=== PATIENT | male | born 1995 | race African-American/Black ===

== ENCOUNTER 2022-08-31 19:27 | Outpatient (CLI) | payer BC, SELFPAY ==
--- NOTE | 2022-09-19 11:41 | W.PM.SLEEP ---
Sleep Study Details Details Interpreting Provider: Sekou Trevino MD Date of Sleep Study: 08/31/22 Sleep Study Details: STUDY TYPE:? Home ? BMI:? 35.7 ORDERING PROVIDER:? Belinda INDICATION:? Concerns about sleep apnea ? SLEEP SUMMARY:? 395.5 minutes monitored RESPIRATORY SUMMARY:? AHI 42.2, supine 48.4, right lateral 24.6 Low oxygen 78 5.6% of study oxygen less than 90%, 0.9% of study oxygen less than 85% snoring% 9.3 PERIODIC LIMB MOVEMENTS OF SLEEP:? Not recorded CARDIAC:? 49-109, mean 63.3 IMPRESSION:? Severe obstructive sleep apnea with supine position dependency RECOMMENDATION: Auto set CPAP pressure 4-17
== END 2022-08-31 19:28 | disposition home or self-care (01) ==
LOC: SLEEP 19:29
PROVIDERS: PCP Family Medicine; Visit Provider Otolaryngology
DX: G47.33 Obstructive sleep apnea (adult) (pediatric) (principal)
CPT/HCPCS: 95806

== ENCOUNTER 2022-10-08 22:37 | Emergency (ER) | payer BC, SELFPAY ==
[2022-10-08 23:11] VITALS: BP 136/79; PULSE 63; RESP 14; TEMP 36.6; O2SAT 100; BMI 35.0
--- NOTE | 2022-10-09 00:05 | ED.WOUNDLAC ---
HPI - Wound/Laceration General Time Seen by Provider: 00:05 Date Seen: 10/09/22 Chief Complaint: Laceration/Wound Stated Complaint: Left Hand Laceration Time Seen by Provider: 10/09/22 00:05 Source: patient and RN notes reviewed Mode of arrival: ambulatory Limitations: no limitations History of Present Illness HPI narrative: Patient is a 26-year-old male coming into the ER with an accidental wound in between his thumb and finger in the interdigital web space of his left hand. He was cutting fish with a knife and accidentally cut himself in this area. He thinks his tetanus may be up-to-date but it is unclear. We will attempt to look that up. No numbness tingling, nothing else was injured. Is still able to freely move fingers/hand. This happened just prior to arrival. Extremity Location: Left: hand Context: accidental Related Data Home Medications Medication Instructions Recorded Confirmed famotidine 40 mg tablet 40 mg PO 07/30/22 09/13/22 pantoprazole 40 mg tablet,delayed tab PO 07/30/22 09/13/22 release Previous Rx's Medication Instructions Recorded amoxicillin 875 mg-potassium 1 tab PO Q12H #20 tabs 07/30/22 clavulanate 125 mg tablet nicotine 14 mg/24 hr daily 1 patch transdermal Q24H #28 ea 07/30/22 transdermal patch prednisone 20 mg tablet 40 mg PO QDAY #10 tabs 07/30/22 nicotine (polacrilex) 2 mg buccal 2 mg buccal Q8H PRN nicotine 08/08/22 lozenge (Nicorette) cravings #72 ea Allergies Allergy/AdvReac Type Severity Reaction Status Date / Time No Known Drug Allergies Allergy Verified 09/13/22 11:23 Review of Systems Narrative: As per HPI PFSH PFSH Social History Smoking Status: Current every day smoker Do you use any of these nicotine containing products: None Second hand tobacco smoke exposure: No How often do you have a drink containing alcohol: never AUDIT-C Alcohol total score: 0 Non-prescribed substance use: denies use Exam Const: Vital Signs, click to edit/add: Vital Signs - 24 hr 10/08/22 23:11 Temperature 97.9 F Pulse Rate [Left P ulse Oximeter] 63 Respiratory Rate 14 Blood Pressure [Ri ght Upper Arm] 136/79 Pulse Oximetry 100 Oxygen Delivery Me thod Room Air Documenting provider has reviewed patient's vital signs: yes Common normals: no apparent distress, average body habitus, oriented x3, no limitations, healthy appearing and alert Other: Patient has a bout a 1 cm laceration situated obliquely in the interdigital web space just below the left thumb. It is just into the subcutaneous tissue but gapes easily. There is dried blood around it, no active bleeding. He has full mobility of his digits, neurovascular is intact. Neuro: Common normals: oriented x3 Sensorium/orientation: alert Course Course Hospital Course: Reviewed with patient that I recommended placing a few stitches to reapproximate the skin edges. Without this I think this wound will continue to open and will have prolonged healing. He agrees to having the stitches done. Reevaluation(s) Reevaluation #1: Nursing staff has been able to secure last tetanus date of 06/15/2020, thus up-to-date. Time: 00:30 Vital Signs Vital signs: Initial Vital Signs Temperature 97.9 F 10/08/22 23:11 Temperature Source Temporal Artery Scan 10/08/22 23:11 Pulse Rate 63 10/08/22 23:11 Pulse Rhythm 10/08/22 23:11 Respiratory Rate 14 10/08/22 23:11 Blood Pressure 136/79 10/08/22 23:11 Blood Pressure Mean 98 10/08/22 23:11 Blood Pressure Position Sitting 10/08/22 23:11 Pulse Oximetry 100 10/08/22 23:11 Oxygen Delivery Method 10/08/22 23:11 Vital Signs Temperature 97.9 F 10/08/22 23:11 Pulse Rate 63 10/08/22 23:11 Respiratory Rate 14 10/08/22 23:11 Blood Pressure 136/79 10/08/22 23:11 Pulse Oximetry 100 10/08/22 23:11 Oxygen Delivery Method 10/08/22 23:11 Temperature 97.9 F 10/08/22 23:11 Pulse Rate 63 10/08/22 23:11 Respiratory Rate 14 10/08/22 23:11 Blood Pressure 136/79 10/08/22 23:11 Pulse Oximetry 100 10/08/22 23:11 Oxygen Delivery Method 10/08/22 23:11 Critical Care Time Critical Care Time Critical Care Time: No Discharge Plan Discharge Clinical Impression: Laceration of hand, left Condition: Stable Instructions: Care For Your Stitches (ED), Laceration (ED) Additional Instructions: Need to keep this wound clean and dry outside of bathing or washing your hand. Keep a bandage with bacitracin on the wound when you are up and about or in public. Need to schedule a clinic follow-up in 1 weeks time to assess the wound for suture removal. If there is any concerns for infection, please seek re-evaluation. Review handouts provided. Activity Level: Activity as Tolerated Discharge Diet: Regular Prescriptions: No Action pantoprazole 40 mg tablet,delayed release (DR/EC) PO famotidine 40 mg tablet 40 mg PO amoxicillin-pot clavulanate 875-125 mg tablet 1 tab PO Q12H Qty: 20 0RF prednisone 20 mg tablet 40 mg PO QDAY Qty: 10 0RF nicotine 14 mg/24 hr patch 24 hour 1 patch transdermal Q24H Qty: 28 1RF nicotine (polacrilex) [Nicorette] 2 mg lozenge 2 mg buccal Q8H PRN (Reason: nicotine cravings) Qty: 72 0RF Follow Up/Referrals: Abdelrahman House MD [Primary Care Provider] - Stand Alone Forms: [facility] Info Instructions Procedures Laceration Laceration 1: Pre procedure diagnosis: Left hand laceration Post procedure diagnosis: Same Site marking: not applicable Verification/time out: correct patient, correct site and correct procedure Name of person performing procedure: Lelia Gomez Site: hand Side (If applicable): left Size (cm): 1 Description: linear and clean Depth: simple, single layer Local Anesthetic: lidocaine 1% Amount of anesthesia used (mL): 3 Pre-repair: wound explored and irrigated extensively Skin layer closed with: other (Ethilon) Size (cm): 4-0 Number of sutures: 3 Technique: simple, interrupted Wound cleansing: sterile water Estimated blood loss (if any): none Conclusion: patient tolerated procedure
[2022-10-09] MEDS: LIDOCAINE 1 % PF 30 ML INJECTION (01:35)
== END 2022-10-09 00:55 | disposition home or self-care (01) ==
LOC: ED 10-09 00:41
PROVIDERS: Emergency Provider Family Medicine; PCP Family Medicine
DX: S61.412A Laceration without foreign body of left hand, initial encounter (principal); W26.0XXA Contact with knife, initial encounter; Y93.G9 Activity, other involving cooking and grilling; Y92.9 Unspecified place or not applicable; Y99.8 Other external cause status
CPT/HCPCS: 12001; 99281; 99283; J2001

== ENCOUNTER 2023-05-25 16:26 | Outpatient (CLI) | payer BC, SELFPAY | END 2023-05-25 16:27 | disposition home or self-care (01) | PROVIDERS: PCP Family Medicine; Visit Provider Family Medicine | DX: Z00.00 Encounter for general adult medical examination without abnormal findings (principal); Z13.6 Encounter for screening for cardiovascular disorders | CPT/HCPCS: 80048; 80061; 86592; 86703; 87491; 87591 ==

== ENCOUNTER 2023-06-04 09:38 | Emergency (ER) | payer BC, SELFPAY ==
[2023-06-04 09:43] VITALS: BP 130/69; PULSE 66; RESP 16; TEMP 36.1; O2SAT 96; BMI 31.9
--- NOTE | 2023-06-04 10:01 | ED.GENADULT ---
HPI - General Adult General Chief complaint: Sore Throat Stated complaint: swollen throat Time Seen by Provider: 06/04/23 09:51 Source: patient Mode of arrival: ambulatory Limitations: no limitations History of Present Illness HPI narrative: 27-year-old male presenting with a sore throat for a couple of days. Throat is getting worse. He felt chills last night. Is painful to swallow. He has no difficulty talking or breathing. Denies cough or other systemic symptoms. Denies any sick contacts. Related Data Home Medications Medication Instructions Recorded Confirmed famotidine 40 mg tablet 40 mg PO DAILY 07/30/22 06/04/23 pantoprazole 40 mg tablet,delayed 40 mg PO DAILY 07/30/22 06/04/23 release trazodone 50 mg tablet 50 mg PO QPM 05/25/23 06/04/23 Previous Rx's Medication Instructions Recorded amoxicillin 875 mg-potassium 1 tab PO BID 7 days #14 tabs 06/04/23 clavulanate 125 mg tablet Allergies Allergy/AdvReac Type Severity Reaction Status Date / Time No Known Drug Allergies Allergy Verified 06/04/23 09:49 Review of Systems Status of ROS: Reports: 10 or more systems reviewed and unremarkable except as noted in History and below [facility] Medical History History of alcohol abuse ?F10.11 - Alcohol abuse, in remission (ICD-10) Insomnia ?G47.00 - Insomnia, unspecified (ICD-10) GERD (gastroesophageal reflux disease) ?K21.9 - Gastro-esophageal reflux disease without esophagitis (ICD-10) Elevated blood pressure reading ?R03.0 - Elevated blood-pressure reading, without diagnosis of hypertension (ICD-10) ADD (attention deficit disorder) ?F98.8 - Other specified behavioral and emotional disorders with onset usually occurring in childhood and adolescence (ICD-10) Depression ?F32.A - Depression, unspecified (ICD-10) ALLYSSA (obstructive sleep apnea) ?G47.33 - Obstructive sleep apnea (adult) (pediatric) (ICD-10) Social History What is 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 living situation?: I presently have a place to live Problems where you live: pests, such as bugs, ants, or mice In the past 12 months, utilities in danger of being shut off: no In the past 12 mos, have been you worried that your food would run out before you had money to buy more?: never true In the past 12 mos, the food you bought just didn't last and you didn't have money to buy more?: never true Smoking Status: Current every day smoker What tobacco products do you use: cigarettes Do you use any of these nicotine containing products: None Second hand tobacco smoke exposure: No How often do you have a drink containing alcohol: never AUDIT-C Alcohol total score: 0 Non-prescribed substance use: denies use How often does anyone, including family, friends and others, physically hurt you: never How often does anyone, including family, friends and others, insult or talk down to you: never How often does anyone, including family, friends and others, threaten you with harm: never How often does anyone, including family, friends and others, scream or curse at you: rarely Little interest or pleasure in doing things: not at all Feeling down, depressed, or hopeless: not at all Exam Narrative: Exam Narrative: Well-nourished well-developed patient in no acute distress. Alert and oriented. Answers questions appropriately. Mood and affect are appropriate. Thoughts are goal oriented and rational. No tangential or magical thinking noted. Patient speaks in full sentences without needing to catch their breath. Speech is not slurred or pressured. Voice is not congested. HEENT: Normocephalic atraumatic. Pupils are equally round reactive to light. Extraocular muscles are intact. Conjunctivae are moist without any icterus noted. Moist mucous membranes. Posterior pharynx shows bilateral tonsillar swelling and exudate present. The soft palate appears irritated but does not appear infected. The soft palate is not protruding forward. Neck is soft without any lymphadenopathy or thyromegaly. No masses are appreciated. Cardiovascular: Heart is regular rate and rhythm. Lungs: Clear to auscultation bilaterally . Skin: Well perfused without any obvious rashes. Const: Vital Signs, click to edit/add: Vital Signs - 24 hr 06/04/23 09:43 Temperature 96.9 F L Pulse Rate [Left P ulse Oximeter] 66 Respiratory Rate 16 Blood Pressure [Le ft Upper Arm] 130/69 Pulse Oximetry 96 Oxygen Delivery Me thod Room Air Course Course Hospital Course: Rapid strep was done which was negative. However given the appearance of his posterior pharynx. We will go ahead and treat with Augmentin. Vital Signs Vital signs: Initial Vital Signs Temperature 96.9 F L 06/04/23 09:43 Temperature Source Temporal Artery Scan 06/04/23 09:43 Pulse Rate 66 06/04/23 09:43 Respiratory Rate 16 06/04/23 09:43 Blood Pressure 130/69 06/04/23 09:43 Blood Pressure Mean 89 06/04/23 09:43 Blood Pressure Position Sitting 06/04/23 09:43 Pulse Oximetry 96 06/04/23 09:43 Oxygen Delivery Method Room Air 06/04/23 09:43 Vital Signs Temperature 96.9 F L 06/04/23 09:43 Pulse Rate 66 06/04/23 09:43 Respiratory Rate 16 06/04/23 09:43 Blood Pressure 130/69 06/04/23 09:43 Pulse Oximetry 96 06/04/23 09:43 Oxygen Delivery Method Room Air 06/04/23 09:43 Temperature 96.9 F L 06/04/23 09:43 Pulse Rate 66 06/04/23 09:43 Respiratory Rate 16 06/04/23 09:43 Blood Pressure 130/69 06/04/23 09:43 Pulse Oximetry 96 06/04/23 09:43 Oxygen Delivery Method Room Air 06/04/23 09:43 Medical Decision Making MDM Narrative Medical decision making narrative: 27-year-old male with pharyngitis. Will treat with Augmentin for 7 days. Lab Data Lab results reviewed: Yes I reviewed the patient's lab results Labs: Lab Results 06/04/23 Range/Units 10:05 Group A Strep DNA NOT DETECTED (Not Detectd) Discharge Plan Discharge Clinical Impression: Pharyngitis Patient Disposition: Home, Self-Care Condition: Stable Additional Instructions: Your strep test was negative today. But it does appear that you have an infection of the throat. Take all antibiotics as prescribed. Okay to use ibuprofen Tylenol as needed for discomfort. Return to the ER if symptoms are getting worse after 48 hours instead of better. Prescriptions: New amoxicillin-pot clavulanate 875-125 mg tablet 1 tab PO BID 7 Days Qty: 14 0RF No Action pantoprazole 40 mg tablet,delayed release (DR/EC) 40 mg PO DAILY famotidine 40 mg tablet 40 mg PO DAILY trazodone 50 mg tablet 50 mg PO QPM Follow Up/Referrals: Conrad Cast MD [Primary Care Provider] - Stand Alone Forms: [employer] Info Instructions
[2023-06-04 11:12] LABS: Strep A DNA Probe* NOT DETECTED (Not Detectd)
[2023-06-04 11:23] VITALS: PULSE 62; PULSE 97; TEMP 36.4
== END 2023-06-04 11:23 | disposition home or self-care (01) ==
PROVIDERS: Emergency Provider Family Medicine; PCP Family Medicine
DX: J02.9 Acute pharyngitis, unspecified (principal)
CPT/HCPCS: 87651; 99283; 99284

== ENCOUNTER 2023-06-14 16:23 | Emergency (ER) | payer BC, SELFPAY ==
[2023-06-14 16:29] VITALS: BP 129/72; PULSE 77; RESP 16; TEMP 36.4; O2SAT 96; BMI 31.9
[2023-06-14 17:31] VITALS: BP 128/75; PULSE 74; RESP 16; O2SAT 96
--- NOTE | 2023-06-14 17:48 | ED.GENADULT ---
HPI - General Adult General Chief complaint: Sore Throat Stated complaint: sore throat still Time Seen by Provider: 06/14/23 17:43 History of Present Illness HPI narrative: This 27-year-old male was seen about 10 days ago in the emergency department here because of a sore throat. At that time his strep test was negative but given the appearance of his throat he did receive a prescription for Augmentin. He states that he got some relief for a few days but then has had persistent sore throat since then. He states that he does smoke. He is interested in cutting back and is concerned about the effect of smoking on his throat and lungs. He does not report any fevers. He does have an occasional cough. He does not report any shortness of breath. Related Data Home Medications Medication Instructions Recorded Confirmed famotidine 40 mg tablet 40 mg PO DAILY 07/30/22 06/04/23 pantoprazole 40 mg tablet,delayed 40 mg PO DAILY 07/30/22 06/04/23 release trazodone 50 mg tablet 50 mg PO QPM 05/25/23 06/04/23 Previous Rx's Medication Instructions Recorded amoxicillin 875 mg-potassium 1 tab PO BID 7 days #14 tabs 06/04/23 clavulanate 125 mg tablet Allergies Allergy/AdvReac Type Severity Reaction Status Date / Time No Known Drug Allergies Allergy Verified 06/14/23 16:34 Review of Systems Status of ROS: Reports: 10 or more systems reviewed and unremarkable except as noted in History and below Narrative: Constitutional: No fevers, no weight gain or loss. Eyes: No discharge. No vision changes. HENT: No congestion, no ear pain. Sore throat as described above. Cardiovascular: No chest pain, no palpitations. Respiratory: No shortness of breath, no wheezes. Occasional cough. Gastrointestinal: No abdominal pain, no vomiting, no diarrhea. Genitourinary: No dysuria, no hematuria. Musculoskeletal: Normal range of motion. Skin: No rashes, no pruritis. Neurological: No dizziness, weakness, sensory change, speech change. Endo/Heme/Allergies: No bruising or bleeding. No polydipsia. Pysch: no suicidality, no anxiety, no insomnia. All other systems reviewed and are negative. [facility] Medical History (Updated 06/14/23 @ 17:52 by Nilesh Villalobos MD) Major depression, recurrent ?F33.9 - Major depressive disorder, recurrent, unspecified (ICD-10) History of alcohol abuse ?F10.11 - Alcohol abuse, in remission (ICD-10) Insomnia ?G47.00 - Insomnia, unspecified (ICD-10) GERD (gastroesophageal reflux disease) ?K21.9 - Gastro-esophageal reflux disease without esophagitis (ICD-10) ADD (attention deficit disorder) ?F98.8 - Other specified behavioral and emotional disorders with onset usually occurring in childhood and adolescence (ICD-10) ALLYSSA (obstructive sleep apnea) ?G47.33 - Obstructive sleep apnea (adult) (pediatric) (ICD-10) Family History (Updated 06/11/23 @ 01:32 by Conrad Cast MD) Other Diabetes Social History (Updated 06/11/23 @ 01:32 by Conrad Cast MD) 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, 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, 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, 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 What is 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 living situation?: I presently have a place to live Problems where you live: pests, such as bugs, ants, or mice In the past 12 months, utilities in danger of being shut off: no In the past 12 mos, have been you worried that your food would run out before you had money to buy more?: never true In the past 12 mos, the food you bought just didn't last and you didn't have money to buy more?: never true Smoking Status: Current every day smoker What tobacco products do you use: cigarettes Do you use any of these nicotine containing products: None Second hand tobacco smoke exposure: No How often do you have a drink containing alcohol: never How often do you have six or more drinks on one occasion: Never AUDIT-C Alcohol total score: 0 Non-prescribed substance use: denies use How often does anyone, including family, friends and others, physically hurt you: never How often does anyone, including family, friends and others, insult or talk down to you: never How often does anyone, including family, friends and others, threaten you with harm: never How often does anyone, including family, friends and others, scream or curse at you: rarely Little interest or pleasure in doing things: not at all Feeling down, depressed, or hopeless: not at all service: Yes Exam Narrative: Exam Narrative: Constitutional: Well-developed, well-nourished, no acute distress. HEENT: Normocephalic, atraumatic. Mild pharyngeal erythema without exudate or tonsillar hypertrophy. Neck: Normal range of motion. Nontender. Supple. Heart: Regular. No murmurs. Normal rate. Intact distal pulses. Lungs: Clear to auscultation. No chest discomfort. No wheezes, rhonchi, or rales. Abdomen: Normal bowel sounds. Nontender. No rebound tenderness. Genitalia: Deferred. Back: No midline tenderness. Normal range of motion. Extremities: Normal range of motion. No injury. Skin: Intact. No rash. Warm. No erythema or pallor. Neurologic: No altered sensation. No weakness. Alert and oriented. Psychiatric: No suicidality. No anxiety or depression. No insomnia. Nursing notes and vitals signs are reviewed. Const: Vital Signs, click to edit/add: Vital Signs - 24 hr 06/14/23 16:29 06/14/23 17:31 Temperature 97.6 F Pulse Rate [Pulse Oximeter] 77 74 Respiratory Rate 16 16 Blood Pressure [[facility] Upper Arm] 129/72 128/75 Pulse Oximetry 96 96 Oxygen Delivery Me thod Room Air Room Air Course Vital Signs Vital signs: Initial Vital Signs Temperature 97.6 F 06/14/23 16:29 Temperature Source Temporal Artery Scan 06/14/23 16:29 Pulse Rate 77 06/14/23 16:29 Pulse Rhythm Regular 06/14/23 16:29 Pulse Strength 3+ Normal 06/14/23 16:29 Respiratory Rate 16 06/14/23 16:29 Blood Pressure 129/72 06/14/23 16:29 Blood Pressure Mean 91 06/14/23 16:29 Blood Pressure Position Sitting 06/14/23 16:29 Pulse Oximetry 96 06/14/23 16:29 Oxygen Delivery Method Room Air 06/14/23 16:29 Vital Signs Temperature 97.6 F 06/14/23 16:29 Pulse Rate 77 06/14/23 16:29 Respiratory Rate 16 06/14/23 16:29 Blood Pressure 129/72 06/14/23 16:29 Pulse Oximetry 96 06/14/23 16:29 Oxygen Delivery Method Room Air 06/14/23 16:29 Temperature 97.6 F 06/14/23 16:29 Pulse Rate 74 06/14/23 17:31 Respiratory Rate 16 06/14/23 17:31 Blood Pressure 128/75 06/14/23 17:31 Pulse Oximetry 96 06/14/23 17:31 Oxygen Delivery Method Room Air 06/14/23 17:31 Medical Decision Making MDM Narrative Medical decision making narrative: This patient just completed a course of Augmentin which did not bring any significant improvement to his sore throat. Most likely his symptoms are related to a virus and possibly some reactionary symptoms to his smoking. I did encourage the patient to stop smoking. Another antibiotic is not indicated at this time. The patient did receive an oral dose of dexamethasone 10 mg which will hopefully help him feel better. He can use [id number] medicines also as needed and directed. Discharge Plan Discharge Clinical Impression: Pharyngitis Condition: Stable Additional Instructions: Use [id number] medicines as needed and directed. Smoking cessation is strongly recommended. Follow up with MD or return if worsening. Prescriptions: No Action pantoprazole 40 mg tablet,delayed release (DR/EC) 40 mg PO DAILY famotidine 40 mg tablet 40 mg PO DAILY trazodone 50 mg tablet 50 mg PO QPM amoxicillin-pot clavulanate 875-125 mg tablet 1 tab PO BID 7 Days Qty: 14 0RF Follow Up/Referrals: Conrad Cast MD [Primary Care Provider] - Stand Alone Forms: [email or web address] Info Instructions
[2023-06-14] MEDS: dexAMETHasone 10 MG/ML inj PO (18:12)
== END 2023-06-14 18:19 | disposition home or self-care (01) ==
PROVIDERS: Emergency Provider Emergency Medicine Emergency Medical Services; PCP Family Medicine
DX: J02.9 Acute pharyngitis, unspecified (principal)
CPT/HCPCS: 99282; 99283; 99284; J1100

== ENCOUNTER 2024-03-10 16:00 | Emergency (ER) | payer OTHER, SELFPAY ==
[2024-03-10 16:08] VITALS: BP 127/78; PULSE 63; RESP 18; TEMP 36.4; O2SAT 98; BMI 31.9
--- NOTE | 2024-03-10 16:15 | ED.ABDPAIN ---
HPI - Abdominal Pain General Time Seen by Provider: 16:15 Date Seen: 03/10/24 Chief Complaint: Abdominal Pain Stated Complaint: vomiting and diahrea Time Seen by Provider: 03/10/24 16:15 Source: patient and RN notes reviewed Mode of arrival: ambulatory Limitations: no limitations History of Present Illness HPI narrative: Patient presents to ED with 2 days of multiple diarrheal stools and 2 episodes of vomiting, has underlying abdominal pain with this. No fever, non-bloody. Vomiting just started today. Has had accompanying waves of abdominal pain. No travel, no known ill contacts. No prior history of surgeries. Has underlying GERD but this is not exacerbated. No history of C difficile colitis. The vomiting just started today but he feels that he is been able to keep in adequate oral fluids. He is following a weight loss diet which baseline has him drink plenty of fluids per his report. Related Data Home Medications Medication Instructions Recorded Confirmed famotidine 40 mg tablet 40 mg PO DAILY 07/30/22 06/04/23 pantoprazole 40 mg tablet,delayed 40 mg PO DAILY 07/30/22 06/04/23 release trazodone 50 mg tablet 50 mg PO QPM 05/25/23 06/04/23 Previous Rx's Medication Instructions Recorded ondansetron 4 mg disintegrating 4 mg PO Q6H PRN nausea and 03/10/24 tablet vomiting #20 tabs Allergies Allergy/AdvReac Type Severity Reaction Status Date / Time No Known Drug Allergies Allergy Verified 06/25/23 18:13 Review of Systems Status of ROS Reports: 6 or more systems reviewed and unremarkable except as noted in History and below [facility] Medical History (Updated 03/10/24 @ 18:17 by Lelia Gomez MD) Major depression, recurrent ?F33.9 - Major depressive disorder, recurrent, unspecified (ICD-10) History of alcohol abuse ?F10.11 - Alcohol abuse, in remission (ICD-10) Insomnia ?G47.00 - Insomnia, unspecified (ICD-10) GERD (gastroesophageal reflux disease) ?K21.9 - Gastro-esophageal reflux disease without esophagitis (ICD-10) ADD (attention deficit disorder) ?F98.8 - Other specified behavioral and emotional disorders with onset usually occurring in childhood and adolescence (ICD-10) ALLYSSA (obstructive sleep apnea) ?G47.33 - Obstructive sleep apnea (adult) (pediatric) (ICD-10) Family History (Updated 06/11/23 @ 01:32 by Conrad Cast MD) Other Diabetes Social History (Updated 06/11/23 @ 01:32 by Conrad Cast MD) 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, 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, 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, 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 is 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 living situation?: I presently have a place to live Problems where you live: pests, such as bugs, ants, or mice In the past 12 months, utilities in danger of being shut off: no In past 12 months, lack of transportation kept you from medical appts, meetings, work, or getting things needed for daily living: no In the past 12 mos, have been you worried that your food would run out before you had money to buy more?: never true In the past 12 mos, the food you bought just didn't last and you didn't have money to buy more?: never true Smoking Status: Current every day smoker What tobacco products do you use: cigarettes Do you use any of these nicotine containing products: None Second hand tobacco smoke exposure: No How often do you have a drink containing alcohol: never How often do you have six or more drinks on one occasion: Never AUDIT-C Alcohol total score: 0 Non-prescribed substance use: denies use How often does anyone, including family, friends and others, physically hurt you: never How often does anyone, including family, friends and others, insult or talk down to you: never How often does anyone, including family, friends and others, threaten you with harm: never How often does anyone, including family, friends and others, scream or curse at you: rarely Little interest or pleasure in doing things: not at all Feeling down, depressed, or hopeless: not at all service: Yes Exam Const: Vital Signs, click to edit/add: Vital Signs - 24 hr 03/10/24 16:08 Temperature 97.5 F L Pulse Rate [Right] 63 Respiratory Rate 18 Blood Pressure [Ri ght Upper Arm] 127/78 Pulse Oximetry 98 Oxygen Delivery Me thod Room Air Patient is ambulatory into the ED of his own accord; he is alert, interactive and no apparent distress. Sclera clear, conjugate gaze. Speech normal, able to speak in complete sentences. Neck supple. Lungs are clear, no wheezing or crackles, good air entry throughout. CV regular rate and rhythm. Abdomen is non-distended, no organomegaly, no masses noted, mild upper abdominal pain which seems to centralize over the epigastric area but no rebound or guarding. Bowel sounds are present. No rash or jaundice noted. No lower extremity edema. Documenting provider has reviewed patient's vital signs: yes Course Course ED Course: Have reviewed with patient that this certainly could be viral gastroenteritis. Will consider ileus as complication of viral GI illness, developing obstructive pathology but unlikely given no prior surgical history. Doubt pancreatitis, appendicitis with this presentation but will consider and image with CT if indicated. Otherwise, have reviewed starting with abdominal x-rays. Will get appropriate labs. Initiate IVF, zofran/toradol for symptoms. Reevaluation(s) Time of Reevaluation #1: 18:14 Reevaluation #1: Did review with patient his normal imaging results, normal labs. They were worried about such things as strangulated hernia or appendicitis. Clinically with his examination as well as normal laboratory findings and symptoms present for over 2 days, I feel appendicitis is very unlikely in this situation. I certainly have no clinical concern about a strangulated hernia. We discussed ongoing observation, will send with a prescription of Zofran. Did offer them to do CT imaging if they were going to be excessively worried, they did decline. I do feel that is acceptable and would not proceed with CT imaging at this time. Vital Signs Vital signs: Initial Vital Signs Temperature 97.5 F L 03/10/24 16:08 Temperature Source Temporal Artery Scan 03/10/24 16:08 Pulse Rate 63 03/10/24 16:08 Respiratory Rate 18 03/10/24 16:08 Blood Pressure 127/78 03/10/24 16:08 Blood Pressure Mean 94 03/10/24 16:08 Blood Pressure Position Sitting 03/10/24 16:08 Pulse Oximetry 98 03/10/24 16:08 Oxygen Delivery Method Room Air 03/10/24 16:08 Vital Signs Temperature 97.5 F L 03/10/24 16:08 Pulse Rate 63 03/10/24 16:08 Respiratory Rate 18 03/10/24 16:08 Blood Pressure 127/78 03/10/24 16:08 Pulse Oximetry 98 03/10/24 16:08 Oxygen Delivery Method Room Air 03/10/24 16:08 Temperature 97.5 F L 03/10/24 16:08 Pulse Rate 63 03/10/24 16:08 Respiratory Rate 18 03/10/24 16:08 Blood Pressure 127/78 03/10/24 16:08 Pulse Oximetry 98 03/10/24 16:08 Oxygen Delivery Method Room Air 03/10/24 16:08 Medications Administered Medications: Discontinued Medications Generic Name Dose Route Start Last Admin Trade Name Freq PRN Reason Stop Dose Admin Sodium Chloride 1,000 mls @ 1,000 mls/hr 03/10/24 16:25 03/10/24 17:51 0.9 % Sodium Chloride 1000 Ml IV 03/10/24 17:24 Infused .Q1H DONNY Infusion Ketorolac Tromethamine 15 mg 03/10/24 16:24 03/10/24 16:48 Ketorolac 15 Mg/Ml Inj IVP 03/10/24 16:25 15 mg ONCE ONE Administration Ondansetron HCl 4 mg 03/10/24 16:24 03/10/24 16:48 Ondansetron 2 Mg/Ml Inj IVP 03/10/24 16:25 4 mg ONCE ONE Administration MDM - Abdominal Pain Lab Data Attestation: I reviewed the patient's lab results. Labs: Lab Results 03/10/24 Range/Units 16:37 WBC 6.02 (4.50-11.00) K/uL RBC 5.61 (4.30-5.90) m/uL Hgb 15.9 (13.5-17.5) gm/dL Hct 47.0 (37.0-53.0) % MCV 84 (80-100) fL MCH 28 (26-34) pg MCHC 34 (32-36) gm/dL RDW Coeff of [place]ullen 12.3 (11.5-15.5) % Plt Count 224 (140-440) K/uL Neut % (Auto) 63.2 (42.0-72.0) % Lymph % (Auto) 27.4 (20-44) % [place] % (Auto) 5.5 (0.0-11.0) % Eos % (Auto) 3.7 (0.0-7.0) % Baso % (Auto) 0.2 (0.0-3.0) % Neut # (Auto) 3.81 (1.7-7.0) K/uL Lymph # (Auto) 1.65 (0.90-2.90) K/uL [place] # (Auto) 0.30 (0.00-0.90) K/UL Eos # (Auto) 0.22 (0.00-0.50) K/uL Baso # (Auto) 0.01 (0.00-0.30) K/uL Abs Immat Gran (auto) 0.00 (0.00-0.30) K/uL Imm/Tot Granulo (auto) 0.0 % Sodium 141 (135-149) mmol/L Potassium 3.7 (3.6-5.1) mmol/L Chloride 105 (96-114) mmol/L Carbon Dioxide 28 (20-32) mmol/L Anion Gap 8 (7-15) mEq/L BUN 15 (5-24) mg/dL Creatinine 1.0 (0.5-1.5) mg/dL Estimated Creat Clear 108.30 Estimated GFR 106 ml/min Glucose 94 (60-115) mg/dL Lactate 0.8 (0.5-1.9) mmol/L Calcium 9.3 (8.4-10.6) mg/dL Total Bilirubin 0.5 (0.1-1.5) mg/dL AST 34 (12-35) U/L ALT 71 H (4-50) U/L Alkaline Phosphatase 55 (40-150) U/L C-Reactive Protein < 0.5 L (0.5-1.0) mg/dL Total Protein 7.8 (6.0-8.3) g/dL Albumin 4.7 (3.3-5.0) g/dL Lipase 122 (23-300) U/L Imaging Data Abdominal x-ray: Attestation: I have reviewed the pertinent imaging results. Radiologist's impression: Patient: KRYSTEN BROTHERS Facility:?[facility] Patient ID:?[id number] Site Patient ID:?[id number]. Site :?1995 Study:?XRay-Abdomen 2 VIEW-03/10/2024 5:28:22 PM Ordering Physician:?SONY Final Report: INDICATION: Abdominal pain. Nausea vomiting and diarrhea. COMPARISON: None available. TECHNIQUE: Views: 2 (4 images) FINDINGS: Nondilated bowel. No significant colonic fecal loading. No significant incidental calcifications. The visualized skeleton demonstrates no significant incidental findings. IMPRESSION: No acute findings. Dictated by Jarocho Umanzor MD @ 03/10/2024 6:04:22 PM (Electronic Signature) Discharge Plan Discharge Clinical Impression: Gastroenteritis Patient Disposition: Home, Self-Care Condition: Stable Instructions: Gastroenteritis (ED), Nutrition Tips for Relief of Diarrhea (ED) Additional Instructions: Use Zofran per prescription, use this as needed for any further nausea or vomiting. Can try a heating pad or warm tub for abdominal cramping. If you are not improving in the next 24-48 hours, feel you are worsening at any point, have worsening vomiting or increased abdominal pain, do recommend re-evaluation. Activity Level: Activity as Tolerated Prescriptions: New ondansetron 4 mg tablet,disintegrating 4 mg PO Q6H PRN (Reason: nausea and vomiting) Qty: 20 0RF No Action pantoprazole 40 mg tablet,delayed release (DR/EC) 40 mg PO DAILY famotidine 40 mg tablet 40 mg PO DAILY trazodone 50 mg tablet 50 mg PO QPM Follow Up/Referrals: Conrad Cast MD [Staff Physician] - Stand Alone Forms: Perfect Audience Info Instructions
[2024-03-10] MEDS: 0.9 % SODIUM CHLORIDE 1000 ml 1,000 ML IV (16:41)
[2024-03-10] MEDS: KETOROLAC 15 MG/ML inj IVP (16:48)
[2024-03-10] MEDS: ONDANSETRON 2 MG/ML inj 4 MG IVP (16:48)
[2024-03-10 16:50] LABS: Lactate* 0.8 mmol/L (0.5-1.9)
[2024-03-10 16:52] LABS: Basophils Absolute Auto 0.01 K/uL (0.00-0.30); Basophils Percent Auto 0.2 % (0.0-3.0); Eosinophils Absolute Auto 0.22 K/uL (0.00-0.50); Eosinophils Percent Auto 3.7 % (0.0-7.0); Hemoglobin* 15.9 gm/dL (13.5-17.5); Lymphocytes Absolute Auto 1.65 K/uL (0.90-2.90); Lymphocytes Percent Auto 27.4 % (20-44); Mean Corpuscular HGB Conc 34 gm/dL (32-36); Mean Corpuscular Hemoglobin 28 pg (26-34); Mean Corpuscular Volume 84 fL (80-100); Monocytes Percent Auto 5.5 % (0.0-11.0); Neutrophils Absolute Auto 3.81 K/uL (1.7-7.0); Neutrophils Percent Auto 63.2 % (42.0-72.0); Platelet Count* 224 K/uL (140-440); RDW Coefficient of Variation % 12.3 % (11.5-15.5); Red Blood Count 5.61 m/uL (4.30-5.90); White Blood Count* 6.02 K/uL (4.50-11.00)
[2024-03-10 16:53] LABS: Slide Review Reflex No
--- NOTE | 2024-03-10 16:58 | XR_ITS ---
Patient: KRYSTEN BROTHERS Facility:?[facility] Patient ID:?[id number] Site Patient ID:?[id number]. Site :?1995 Study:?XRay-Abdomen 2 VIEW-03/10/2024 5:28:22 PM Ordering Physician:EDU Final Report: INDICATION: Abdominal pain. Nausea vomiting and diarrhea. COMPARISON: None available. TECHNIQUE: Views: 2 (4 images) FINDINGS: Nondilated bowel. No significant colonic fecal loading. No significant incidental calcifications. The visualized skeleton demonstrates no significant incidental findings. IMPRESSION: No acute findings. Dictated by Jarocho Umanzor MD @ 03/10/2024 6:04:22 PM Signed by:?Jarocho Umanzor MD @03/10/2024 6:04:22 PM (Electronic Signature)
[2024-03-10 17:08] LABS: Albumin* 4.7 g/dL (3.3-5.0); Chloride* 105 mmol/L (96-114)
[2024-03-10 17:09] LABS: Potassium* 3.7 mmol/L (3.6-5.1); Sodium* 141 mmol/L (135-149)
[2024-03-10 17:11] LABS: Bilirubin Total* 0.5 mg/dL (0.1-1.5); Estimated Glomerular Filt Rate 106 ml/min
[2024-03-10 17:12] LABS: Alanine Aminotransferase* 71 U/L (4-50); Alkaline Phosphatase* 55 U/L (40-150); Anion Gap 8 mEq/L (7-15); Aspartate Amino Transferase* 34 U/L (12-35); Blood Urea Nitrogen* 15 mg/dL (5-24); Calcium* 9.3 mg/dL (8.4-10.6); Carbon Dioxide* 28 mmol/L (20-32); Glucose* 94 mg/dL (60-115); Lipase* 122 U/L (23-300); Total Protein* 7.8 g/dL (6.0-8.3)
[2024-03-10 17:23] LABS: C Reactive Protein* < 0.5 mg/dL (0.5-1.0)
== END 2024-03-10 18:34 | disposition home or self-care (01) ==
PROVIDERS: Emergency Provider Family Medicine; PCP Family Medicine
DX: K52.9 Noninfective gastroenteritis and colitis, unspecified (principal)
CPT/HCPCS: 36415; 74019; 80053; 83605; 83690; 85025; 86140; 94761; 96374; 96375; 99284; J1885; J2405; J7030

== ENCOUNTER 2024-03-12 15:53 | Emergency (ER) | payer OTHER, SELFPAY ==
[2024-03-12 15:56] VITALS: BP 141/77; PULSE 71; RESP 16; TEMP 36.9; O2SAT 97; BMI 31.9
--- NOTE | 2024-03-12 16:00 | ED_ITS ---
HPI - Abdominal Pain General Time Seen by Provider: 16:02 Date Seen: 03/12/24 Chief Complaint: Abdominal Pain Stated Complaint: stomach pain, pelvic pain Time Seen by Provider: 03/12/24 15:54 Source: patient, family (Mom is present today.), RN notes reviewed and old records reviewed Mode of arrival: ambulatory Limitations: no limitations History of Present Illness HPI narrative: This 28-year-old male is returning with ongoing abdominal pain in the setting of nausea vomiting and diarrhea. He has had symptoms since Sunday, was evaluated on Sunday here. Had negative x-ray imaging of his abdomen and reassuring labs. Today he started with chills. He has not had fever prior to this. At work today, the more he was walking around, felt the pain localizing to his right side and right hip area. He had 2 episodes of vomiting on Sunday, yesterday was better. He states his appetite was decreased today, somewhat force himself to eat lunch. He has felt nauseated today. He states he had small portion of his lunch that he vomited back up. He has ongoing nonbloody diarrhea, states he has maybe had 8-10 stools today. Yesterday was not as much but he was still having diarrhea. He still notes intermittent abdominal pain. He has had no ill contacts, no travel. He has had no prior abdominal surgery, no history of C difficile colitis. Related Data Home Medications Medication Instructions Recorded Confirmed famotidine 40 mg tablet 40 mg PO DAILY 07/30/22 06/04/23 pantoprazole 40 mg tablet,delayed 40 mg PO DAILY 07/30/22 06/04/23 release trazodone 50 mg tablet 50 mg PO QPM 05/25/23 06/04/23 Previous Rx's Medication Instructions Recorded ondansetron 4 mg disintegrating 4 mg PO Q6H PRN nausea and 03/10/24 tablet vomiting #20 tabs Allergies Allergy/AdvReac Type Severity Reaction Status Date / Time No Known Drug Allergies Allergy Verified 06/25/23 18:13 [facility] Medical History (Updated 03/12/24 @ 17:31 by Lelia Gomez MD) Major depression, recurrent ?F33.9 - Major depressive disorder, recurrent, unspecified (ICD-10) History of alcohol abuse ?F10.11 - Alcohol abuse, in remission (ICD-10) Insomnia ?G47.00 - Insomnia, unspecified (ICD-10) GERD (gastroesophageal reflux disease) ?K21.9 - Gastro-esophageal reflux disease without esophagitis (ICD-10) ADD (attention deficit disorder) ?F98.8 - Other specified behavioral and emotional disorders with onset usually occurring in childhood and adolescence (ICD-10) ALLYSSA (obstructive sleep apnea) ?G47.33 - Obstructive sleep apnea (adult) (pediatric) (ICD-10) Family History (Updated 06/11/23 @ 01:32 by Conrad Cast MD) Other Diabetes Social History (Updated 06/11/23 @ 01:32 by Conrad Cast MD) 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, 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, 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, 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 What is 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 living situation?: I presently have a place to live Problems where you live: pests, such as bugs, ants, or mice In the past 12 months, utilities in danger of being shut off: no In past 12 months, lack of transportation kept you from medical appts, meetings, work, or getting things needed for daily living: no In the past 12 mos, have been you worried that your food would run out before you had money to buy more?: never true In the past 12 mos, the food you bought just didn't last and you didn't have money to buy more?: never true Smoking Status: Current every day smoker What tobacco products do you use: cigarettes Do you use any of these nicotine containing products: None Second hand tobacco smoke exposure: No How often do you have a drink containing alcohol: never How often do you have six or more drinks on one occasion: Never AUDIT-C Alcohol total score: 0 Non-prescribed substance use: denies use How often does anyone, including family, friends and others, physically hurt you : never How often does anyone, including family, friends and others, insult or talk down to you: never How often does anyone, including family, friends and others, threaten you with harm: never How often does anyone, including family, friends and others, scream or curse at you: rarely Little interest or pleasure in doing things: not at all Feeling down, depressed, or hopeless: not at all service: Yes Exam Const: Vital Signs, click to edit/add: Vital Signs - 24 hr 03/12/24 15:56 Temperature 98.5 F Pulse Rate [Pulse Oximeter] 71 Respiratory Rate 16 Blood Pressure [Ri ght Upper Arm] 141/77 H Pulse Oximetry 97 Oxygen Delivery Me thod Room Air Patient is alert, interactive, no apparent distress. Pupils are equal and round, conjugate gaze, sclera clear. Symmetrical facial function, able speak in complete sentences. Lips look normal, no cracking or dryness to them. Neck supple. Lungs are clear, good air entry, no wheezing or crackles. CV regular rate and rhythm, no murmur, normal S1-S2, no S3-S4. Abdomen is soft, has distant bowel sounds. He does not seem distended. He has no organomegaly, no masses noted, no rebound or guarding. He has very minimal discomfort in the epigastric area on palpation. He was ambulatory into the ED of his own accord. Documenting provider has reviewed patient's vital signs: yes Course Course ED Course: With patient's ongoing symptoms, do think we should consider C difficile, obtain stool cultures. We will do CT imaging of his abdomen and pelvis to look at such things as colitis. I doubt appendicitis given his ongoing benign clinical examination but CT imaging will certainly hopefully rule that out for us. He does not seem to have an acute surgical abdomen on examination but given the length of his symptoms and ongoing issues, do feel CT imaging is necessary to help us further evaluate this. Will give him IV fluids and Zofran for symptom control. Reevaluation(s) Time of Reevaluation #1: 17:26 Reevaluation #1: Have reviewed with patient that his CT showing no acute or concerning findings. We have reviewed normal labs. We discussed that if he has ongoing issues, next step would be to collect stool for studies. If those are negative and having ongoing diarrhea, colonoscopy would be next in line. We will plan to discharge to home for further outpatient evaluation, he will need to follow up in clinic Vital Signs Vital signs: Initial Vital Signs Temperature 98.5 F 03/12/24 15:56 Temperature Source Temporal Artery Scan 03/12/24 15:56 Pulse Rate 71 03/12/24 15:56 Respiratory Rate 16 03/12/24 15:56 Blood Pressure 141/77 H 03/12/24 15:56 Blood Pressure Mean 98 03/12/24 15:56 Blood Pressure Position Sitting 03/12/24 15:56 Pulse Oximetry 97 03/12/24 15:56 Oxygen Delivery Method Room Air 03/12/24 15:56 Vital Signs Temperature 98.5 F 03/12/24 15:56 Pulse Rate 71 03/12/24 15:56 Respiratory Rate 16 03/12/24 15:56 Blood Pressure 141/77 H 03/12/24 15:56 Pulse Oximetry 97 03/12/24 15:56 Oxygen Delivery Method Room Air 03/12/24 15:56 Temperature 98.5 F 03/12/24 15:56 Pulse Rate 71 03/12/24 15:56 Respiratory Rate 16 03/12/24 15:56 Blood Pressure 141/77 H 03/12/24 15:56 Pulse Oximetry 97 03/12/24 15:56 Oxygen Delivery Method Room Air 03/12/24 15:56 MDM - Abdominal Pain Lab Data Attestation: I reviewed the patient's lab results. Labs: Lab Results 03/12/24 Range/Units 16:20 WBC 7.76 (4.50-11.00) K/uL RBC 5.90 (4.30-5.90) m/uL Hgb 16.5 (13.5-17.5) gm/dL Hct 48.9 (37.0-53.0) % MCV 83 (80-100) fL MCH 28 (26-34) pg MCHC 34 (32-36) gm/dL RDW Coeff of Cullen 12.1 (11.5-15.5) % Plt Count 228 (140-440) K/uL Neut % (Auto) 73.6 H (42.0-72.0) % Lymph % (Auto) 17.1 L (20-44) % [place] % (Auto) 4.9 (0.0-11.0) % Eos % (Auto) 4.1 (0.0-7.0) % Baso % (Auto) 0.3 (0.0-3.0) % Neut # (Auto) 5.70 (1.7-7.0) K/uL Lymph # (Auto) 1.30 (0.90-2.90) K/uL [place] # (Auto) 0.40 (0.00-0.90) K/UL Eos # (Auto) 0.32 (0.00-0.50) K/uL Baso # (Auto) 0.02 (0.00-0.30) K/uL Abs Immat Gran (auto) 0.00 (0.00-0.30) K/uL Imm/Tot Granulo (auto) 0.0 % Sodium 141 (135-149) mmol/L Potassium 4.2 (3.6-5.1) mmol/L Chloride 109 (96-114) mmol/L Carbon Dioxide 25 (20-32) mmol/L Anion Gap 7 (7-15) mEq/L BUN 15 (5-24) mg/dL Creatinine 0.9 (0.5-1.5) mg/dL Estimated Creat Clear 120.33 Estimated GFR 121 ml/min Glucose 96 (60-115) mg/dL Lactate 0.8 (0.5-1.9) mmol/L Calcium 9.7 (8.4-10.6) mg/dL Total Bilirubin 0.8 (0.1-1.5) mg/dL AST 32 (12-35) U/L ALT 57 H (4-50) U/L Alkaline Phosphatase 59 (40-150) U/L C-Reactive Protein 0.5 (0.5-1.0) mg/dL Total Protein 8.2 (6.0-8.3) g/dL Albumin 4.9 (3.3-5.0) g/dL Lipase 118 (23-300) U/L Imaging Data CT scan - abdomen: Attestation: I have reviewed the pertinent imaging results. Radiologist's impression: Patient: KRYSTEN BROTHERS Facility:?[facility] Patient ID:?[id number] Site Patient ID:?[id number]. Site :?1995 Study:?CT-Abdomen/Pelvis W/ 103CC [id number]/8/2024 4:38:02 PM Ordering Physician:?Lelia Gomez Final Report: INDICATION: Abdominal pain, not otherwise described. Associated nausea, vomiting and diarrhea. COMPARISON: None available. TECHNIQUE: CT of the abdomen and pelvis with 103 cc of Isovue 370 intravenous contrast. Please note that all CT scans at this facility use dose modulation, iterative reconstruction, and/or weight-based dosing when appropriate to reduce radiation dose to as low as reasonably achievable. FINDINGS: ABDOMEN Liver: Focal fatty infiltration of the left hepatic lobe is noted adjacent to the intersegmental fissure. No intrahepatic biliary ductal dilatation. Patent portal veins. The hepatic veins are not well opacified due to timing of imaging relative to contrast bolus administration on this examination performed in the late arterial phase. Gallbladder: Normal gallbladder size. Normal common duct caliber. No pericholecystic inflammatory changes. Pancreas: Normal pancreatic attenuation. No focal lesion. Normal duct caliber. No peripancreatic inflammatory changes. Spleen: Normal splenic attenuation. No suspicious focal lesion. Patent splenic artery and vein. Adrenal Glands: Symmetrical adrenal glands. No focal lesion of significance. Kidneys: Normal bilateral renal attenuation. No suspicious focal lesion. No obstructing nephrolith or dilatation of the intrarenal collecting systems. Patent renal arteries and veins. Nondilated upper urinary tracts. Gastrointestinal tract: Normal caliber, attenuation and wall thickness of the gastrointestinal tract. No inflammatory changes. Normal mesentery. Normal appendix. Vascular: Abdominal aorta and its major proximal branches including the celiac, superior mesenteric, inferior mesenteric, renal, and bilateral common iliac arteries are patent. Inferior vena cava, portal and superior mesenteric veins are patent. Additional findings: No incidental adenopathy. No significant ascites, free fluid or pneumoperitoneum. PELVIS No bladder lesion is identified. No significant incidental findings related to the prostate and seminal vesicles. No abnormal free fluid. No incidental adenopathy. SKELETON AND BODY WALL No acute or suspicious incidental findings. Small fat containing umbilical hernia. LOWER THORAX Partially included lower thoracic wall, lungs, pleural spaces and mediastinum are otherwise without significant incidental findings. IMPRESSION: No imaging findings pertinent to the indication for the exam or significant unrelated findings. Incidental findings described in the body of the report. Please note that all CT scans at this facility use dose modulation, iterative reconstruction, and/or weight-based dosing when appropriate to reduce radiation dose to as low as reasonably achievable. Dictated by Jarocho Umanzor MD @ 03/12/2024 4:59:45 PM (Electronic Signature) Discharge Plan Discharge Clinical Impression: Nausea, vomiting, and diarrhea Abdominal pain Qualifiers: Abdominal location: epigastric Qualified Code(s): R10.13 - Epigastric pain Patient Disposition: Home, Self-Care Condition: Stable Instructions: Abdominal Pain (ED), Nutrition Tips for Relief of Diarrhea (ED) Additional Instructions: Need to collect the stool studies and bring back to the hospital lab. Can continue with Zofran prescribed last time as needed for nausea or vomiting. Follow the handout on nutrition tips for relief of diarrhea, try a to stay adequately hydrated with sufficient fluids. Recommend follow up in clinic within the next week. As before, if you feel you are worsening, develops fever, uncontrolled vomiting or worsening abdominal pain, do recommend re-evaluation. Activity Level: Activity as Tolerated Prescriptions: No Action pantoprazole 40 mg tablet,delayed release (DR/EC) 40 mg PO DAILY famotidine 40 mg tablet 40 mg PO DAILY trazodone 50 mg tablet 50 mg PO QPM ondansetron 4 mg tablet,disintegrating 4 mg PO Q6H PRN (Reason: nausea and vomiting) Qty: 20 0RF Follow Up/Referrals: Abdelrahman House MD [Primary Care Provider] - Stand Alone Forms: riskmethods Info Instructions
--- NOTE | 2024-03-12 16:09 | CT_ITS ---
Patient: KRYSTEN BROTHERS Facility:?[facility] Patient ID:?[id number] Site Patient ID:?[id number]. Site :?[id number] Study:?CT-Abdomen/Pelvis W/ 103CC [id number]/8/2024 4:38:02 PM Ordering Physician:Deon Gomez Final Report: INDICATION: Abdominal pain, not otherwise described. Associated nausea, vomiting and diarrhea. COMPARISON: None available. TECHNIQUE: CT of the abdomen and pelvis with 103 cc of Isovue 370 intravenous contrast. Please note that all CT scans at this facility use dose modulation, iterative reconstruction, and/or weight-based dosing when appropriate to reduce radiation dose to as low as reasonably achievable. FINDINGS: ABDOMEN Liver: Focal fatty infiltration of the left hepatic lobe is noted adjacent to the intersegmental fissure. No intrahepatic biliary ductal dilatation. Patent portal veins. The hepatic veins are not well opacified due to timing of imaging relative to contrast bolus administration on this examination performed in the late arterial phase. Gallbladder: Normal gallbladder size. Normal common duct caliber. No pericholecystic inflammatory changes. Pancreas: Normal pancreatic attenuation. No focal lesion. Normal duct caliber. No peripancreatic inflammatory changes. Spleen: Normal splenic attenuation. No suspicious focal lesion. Patent splenic artery and vein. Adrenal Glands: Symmetrical adrenal glands. No focal lesion of significance. Kidneys: Normal bilateral renal attenuation. No suspicious focal lesion. No obstructing nephrolith or dilatation of the intrarenal collecting systems. Patent renal arteries and veins. Nondilated upper urinary tracts. Gastrointestinal tract: Normal caliber, attenuation and wall thickness of the gastrointestinal tract. No inflammatory changes. Normal mesentery. Normal appendix. Vascular: Abdominal aorta and its major proximal branches including the celiac, superior mesenteric, inferior mesenteric, renal, and bilateral common iliac arteries are patent. Inferior vena cava, portal and superior mesenteric veins are patent. Additional findings: No incidental adenopathy. No significant ascites, free fluid or pneumoperitoneum. PELVIS No bladder lesion is identified. No significant incidental findings related to the prostate and seminal vesicles. No abnormal free fluid. No incidental adenopathy. SKELETON AND BODY WALL No acute or suspicious incidental findings. Small fat containing umbilical hernia. LOWER THORAX Partially included lower thoracic wall, lungs, pleural spaces and mediastinum are otherwise without significant incidental findings. IMPRESSION: No imaging findings pertinent to the indication for the exam or significant unrelated findings. Incidental findings described in the body of the report. Please note that all CT scans at this facility use dose modulation, iterative reconstruction, and/or weight-based dosing when appropriate to reduce radiation dose to as low as reasonably achievable. Dictated by Jarocho Umanzor MD @ 03/12/2024 4:59:45 PM Signed by:?Jarocho Umanzor MD @03/12/2024 4:59:45 PM (Electronic Signature)
[2024-03-12] MEDS: 0.9 % SODIUM CHLORIDE 1000 ml 1,000 ML IV (16:15)
[2024-03-12] MEDS: ONDANSETRON 2 MG/ML inj 4 MG IVP (16:15)
[2024-03-12 16:28] LABS: Basophils Absolute Auto 0.02 K/uL (0.00-0.30); Basophils Percent Auto 0.3 % (0.0-3.0); Eosinophils Absolute Auto 0.32 K/uL (0.00-0.50); Eosinophils Percent Auto 4.1 % (0.0-7.0); Hematocrit 48.9 % (37.0-53.0); Hemoglobin* 16.5 gm/dL (13.5-17.5); Lymphocytes Percent Auto 17.1 % (20-44); Mean Corpuscular HGB Conc 34 gm/dL (32-36); Mean Corpuscular Hemoglobin 28 pg (26-34); Mean Corpuscular Volume 83 fL (80-100); Monocytes Percent Auto 4.9 % (0.0-11.0); Neutrophils Percent Auto 73.6 % (42.0-72.0); Platelet Count* 228 K/uL (140-440); RDW Coefficient of Variation % 12.1 % (11.5-15.5); White Blood Count* 7.76 K/uL (4.50-11.00)
[2024-03-12 16:29] LABS: Lactate* 0.8 mmol/L (0.5-1.9)
[2024-03-12 16:35] LABS: Slide Review Reflex No
[2024-03-12 16:44] LABS: Chloride* 109 mmol/L (96-114)
[2024-03-12 16:45] LABS: Albumin* 4.9 g/dL (3.3-5.0); Sodium* 141 mmol/L (135-149)
[2024-03-12 16:46] LABS: Potassium* 4.2 mmol/L (3.6-5.1)
[2024-03-12 16:48] LABS: Alanine Aminotransferase* 57 U/L (4-50); Alkaline Phosphatase* 59 U/L (40-150); Anion Gap 7 mEq/L (7-15); Aspartate Amino Transferase* 32 U/L (12-35); Bilirubin Total* 0.8 mg/dL (0.1-1.5); Blood Urea Nitrogen* 15 mg/dL (5-24); Carbon Dioxide* 25 mmol/L (20-32); Creatinine* 0.9 mg/dL (0.5-1.5); Est. Creatinine Clearance* 120.33; Estimated Glomerular Filt Rate 121 ml/min; Lipase* 118 U/L (23-300); Total Protein* 8.2 g/dL (6.0-8.3)
[2024-03-12 16:49] LABS: Calcium* 9.7 mg/dL (8.4-10.6); Glucose* 96 mg/dL (60-115)
[2024-03-12 16:51] LABS: C Reactive Protein* 0.5 mg/dL (0.5-1.0)
[2024-03-13 19:10] LABS: C.Difficile Negative (Negative); CDIFFEPI 027 PRESUMPTIVE NEGATIVE (Negative)
[2024-03-16 23:44] LABS: Ova and Parasite, Fecal Negative (Negative)
== END 2024-03-12 17:46 | disposition home or self-care (01) ==
PROVIDERS: Emergency Provider Family Medicine; PCP Family Medicine
DX: R11.2 Nausea with vomiting, unspecified (principal); R19.7 Diarrhea, unspecified
CPT/HCPCS: 36415; 74177; 80053; 83605; 83690; 85025; 86140; 87045; 87046; 87177; 87209; 87427; 87493; 96374; 99284; 99285; J2405; J7030; Q9967

== ENCOUNTER 2024-04-24 06:59 | Emergency (ER) | payer OTHER, SELFPAY ==
[2024-04-24 07:10] VITALS: BP 123/80; PULSE 70; RESP 18; TEMP 35.8; O2SAT 95; BMI 33.5
--- NOTE | 2024-04-24 07:39 | ED.GENADULT ---
HPI - General Adult General Chief complaint: Laceration/Wound Stated complaint: laceration finger Time Seen by Provider: 04/24/24 07:21 Source: patient Mode of arrival: ambulatory Limitations: no limitations History of Present Illness HPI narrative: 28-year-old male with laceration to the right ring finger. He and his boss were holding a metal plate onto a column to attach it when the plate slipped while his boss was trying to hammer it in place. This caused a pinching type injury between the plate and the column of the patient's right index finger tip. He had immediate pain and noticed some bleeding. He does not take anticoagulants. He is unsure of his last tetanus shot. No other affected areas. He can flex, extend abduct and adduct the finger with no difficulty. Does have some numbness on the finger tip. No pain in the rest of the hand, wrist or opposite hand. Has not taken any medication to help with pain thus far. Home meds reviewed, accurate as listed per patient. No allergies. ROS notable for no other neurological, musculoskeletal, generalized or skin changes. Related Data Home Medications ?Medication ?Instructions ?Recorded ?Confirmed famotidine 40 mg tablet 40 mg PO DAILY 07/30/22 04/24/24 pantoprazole 40 mg tablet,delayed 40 mg PO DAILY 07/30/22 04/24/24 release trazodone 50 mg tablet 50 mg PO QPM 05/25/23 04/24/24 Previous Rx's ?Medication ?Instructions ?Recorded ondansetron 4 mg disintegrating 4 mg PO Q6H PRN nausea and 03/10/24 tablet vomiting #20 tabs Allergies Allergy/AdvReac Type Severity Reaction Status Date / Time No Known Drug Allergies Allergy Verified 04/24/24 07:15 [facility] Medical History Major depression, recurrent ?F33.9 - Major depressive disorder, recurrent, unspecified (ICD-10) History of alcohol abuse ?F10.11 - Alcohol abuse, in remission (ICD-10) Insomnia ?G47.00 - Insomnia, unspecified (ICD-10) GERD (gastroesophageal reflux disease) ?K21.9 - Gastro-esophageal reflux disease without esophagitis (ICD-10) ADD (attention deficit disorder) ?F98.8 - Other specified behavioral and emotional disorders with onset usually occurring in childhood and adolescence (ICD-10) ALLYSSA (obstructive sleep apnea) ?G47.33 - Obstructive sleep apnea (adult) (pediatric) (ICD-10) Family History Other Diabetes Social History 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, 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, 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, 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 What is 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 living situation?: I presently have a place to live Problems where you live: pests, such as bugs, ants, or mice In the past 12 months, utilities in danger of being shut off: no In past 12 months, lack of transportation kept you from medical appts, meetings, work, or getting things needed for daily living: no In the past 12 mos, have been you worried that your food would run out before you had money to buy more?: never true In the past 12 mos, the food you bought just didn't last and you didn't have money to buy more?: never true Smoking Status: Current every day smoker What tobacco products do you use: cigarettes Do you use any of these nicotine containing products: None Second hand tobacco smoke exposure: No How often do you have a drink containing alcohol: never How often do you have six or more drinks on one occasion: Never AUDIT-C Alcohol total score: 0 Non-prescribed substance use: denies use How often does anyone, including family, friends and others, physically hurt you: never How often does anyone, including family, friends and others, insult or talk down to you: never How often does anyone, including family, friends and others, threaten you with harm: never How often does anyone, including family, friends and others, scream or curse at you: rarely Little interest or pleasure in doing things: not at all Feeling down, depressed, or hopeless: not at all service: Yes Exam Const: Vital Signs, click to edit/add: Vital Signs - 24 hr 04/24/24 07:10 Temperature 96.5 F L Pulse Rate [Left P ulse Oximeter] 70 Respiratory Rate 18 Blood Pressure [Le ft Upper Arm] 123/80 Pulse Oximetry 95 Oxygen Delivery Me thod Room Air Documenting provider has reviewed patient's vital signs: yes Common normals: no apparent distress General appearance: cooperative and well kempt HENMT: Common normals: normocephalic Head and scalp: normocephalic Eye: General eye: normal appearance of both eyes Resp: Common normals: normal respiratory effort Effort & inspection: able to speak in complete sentences Cardio: Other: 2+ radial pulses on right. Normal capillary refill in all fingers. Extremity: Other: Right hand and wrist examine. Normal range of motion of all fingers including affected finger in all appropriate directions. There is some mild petechiae at the right 4th finger tip and a 1.5 cm curved laceration just distal to the nail tip on the tip of the finger and then a 2nd 8 mm vertical laceration on the pad of the 4th finger tip. All are bleeding slightly but the skin reapproximate very easily and the cuts are dermal depth and do not affect any of the deeper structures. Neuro: Other: Numbness to the right finger tip but otherwise normal motor function. Remainder of sensory exam of the right hand is normal Psych: Appearance: well kempt Attitude: engaged Mood and affect: euthymic mood Insight: insight good Judgement: judgment good Skin: Narrative: Lacerations as above only, no other signs of injury or trauma. Course Course ED Course: 28-year-old male with finger laceration, no signs of tendon avulsion or motor deficit. Numbness to the pad of the finger not unexpected and likely to return. Could be a small fracture with the amount of impact but since there is no tendon deficit, management would not change if there was a small fracture and I do not recommend x-ray. Rationale was discussed and he agrees. Counseled on Tylenol and ibuprofen for pain control at home. Recommended Steri-Strips for closure. Procedure: Laceration closure. Wound was cleansed with soap and tap water on a gauze sponge and then dried with gauze sponge. Mastisol and half-inch Steri-Strips applied with good wound reapproximation and hemostasis. Well tolerated. Care discussed. No indications for antibiotics. Nurse will update me on his last tetanus shot and if needed, will update prior to discharge. Patient will follow-up if he has any tendon deficit motor deficit or lingering concerns in a week as needed only Vital Signs Vital signs: Initial Vital Signs Temperature 96.5 F L 04/24/24 07:10 Temperature Source Temporal Artery Scan 04/24/24 07:10 Pulse Rate 70 04/24/24 07:10 Respiratory Rate 18 04/24/24 07:10 Blood Pressure 123/80 04/24/24 07:10 Blood Pressure Mean 94 04/24/24 07:10 Blood Pressure Position Sitting 04/24/24 07:10 Pulse Oximetry 95 04/24/24 07:10 Oxygen Delivery Method Room Air 04/24/24 07:10 Vital Signs Temperature 96.5 F L 04/24/24 07:10 Pulse Rate 70 04/24/24 07:10 Respiratory Rate 18 04/24/24 07:10 Blood Pressure 123/80 04/24/24 07:10 Pulse Oximetry 95 04/24/24 07:10 Oxygen Delivery Method Room Air 04/24/24 07:10 Temperature 96.5 F L 04/24/24 07:10 Pulse Rate 70 04/24/24 07:10 Respiratory Rate 18 04/24/24 07:10 Blood Pressure 123/80 04/24/24 07:10 Pulse Oximetry 95 04/24/24 07:10 Oxygen Delivery Method Room Air 04/24/24 07:10 Discharge Plan Discharge Clinical Impression: Laceration of finger without complication Patient Disposition: Home, Self-Care Condition: Improved Instructions: Steristrips (ED) Additional Instructions: As we discussed, the lacerations were closed and reinforced with Steri-Strips. This is a medical glue and tape product that will keep the edges of the wound held together while it heals from the bottom up. The should stay on for at least 3 days but hopefully closer to 5. After things dry for an hour, it is okay to get the Steri-Strips wet though soaking or extensive scrubbing is not recommended. You do not need to apply any special ointments, antibiotics or any other similar products. It is okay to return to work. There are no signs of any tendon rupture. Some numbness would be expected. As discussed, there could be a small fracture in the tip of the finger but since there are no signs of any abnormal tendon function, it would not change our management in any way. X-ray is not recommended because of this. The pain will be worse at night. I would use Tylenol 1000 mg every 6 hours and or ibuprofen 600 mg every 6 hours for pain. If things worsen significantly or if you have difficulty moving or extending the tip of the finger, I would recommend follow-up in the clinic. I do expect feeling to return to the finger tip but it may take several weeks. Activity Level: Activity as Tolerated Discharge Diet: Regular Prescriptions: No Action pantoprazole 40 mg tablet,delayed release (DR/EC) 40 mg PO DAILY famotidine 40 mg tablet 40 mg PO DAILY trazodone 50 mg tablet 50 mg PO QPM ondansetron 4 mg tablet,disintegrating 4 mg PO Q6H PRN (Reason: nausea and vomiting) Qty: 20 0RF Follow Up/Referrals: Abdelrahman House MD [Primary Care Provider] - Stand Alone Forms: [facility]er[facility] Info Instructions
== END 2024-04-24 07:53 | disposition home or self-care (01) ==
LOC: ED 07:43
PROVIDERS: Emergency Provider Family Medicine; PCP Family Medicine
DX: S61.214A Laceration without foreign body of right ring finger without damage to nail, initial encounter (principal); W26.9XXA Contact with unspecified sharp object(s), initial encounter
CPT/HCPCS: 99283

== ENCOUNTER 2025-07-31 19:06 | Outpatient (CLI) | payer OTHER, SELFPAY | END 2025-07-31 19:07 | disposition home or self-care (01) | LOC: AMB 08-03 16:15 | PROVIDERS: PCP Family Medicine; Visit Provider Family Medicine | DX: S01.01XA Laceration without foreign body of scalp, initial encounter (principal); Y04.0XXA Assault by unarmed brawl or fight, initial encounter; Y92.009 Unspecified place in unspecified non-institutional (private) residence as the place of occurrence of the external cause | CPT/HCPCS: A0998 ==